=== PATIENT | female | born 1985 | race Caucasian/White ===

== ENCOUNTER 2016-09-12 19:07 | Inpatient (IN) | payer MEDICAID ==
[2016-09-12] VITALS (37 sets, daily range): BP systolic 88–142; BP diastolic 51–114; PULSE 66–89; RESP 18; TEMP 97.9
[~2016-09-12 19:07] MED LIST: IBUP600 PO
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
[2016-09-12] MEDS ORDERED: LACTATED RINGER'S 1000 ML INJ 1,000 ML IV SCH (20:18)
[2016-09-12] MEDS ORDERED: LACTATED RINGER'S 1000 ML INJ 1,000 ML IV PRN (20:18)
[2016-09-12] MEDS ORDERED: LIDOCAINE HCL 1% 50 ML VIAL I-DERMAL PRN (20:30)
[2016-09-12] MEDS ORDERED: SODIUM CHLORID 0.9% 500 ML INJ 500 ML IV PRN (20:30)
[2016-09-12] MEDS ORDERED: CITRIC ACID-SODIUM CITRATE LIQ 30 ML UDC PO SCH (20:30)
[2016-09-12] MEDS ORDERED: LIDOCAINE HCL 1% 50 ML VIAL INFIL PRN (20:30)
[2016-09-12] MEDS ORDERED: OXYTOCIN 30 UNITS-500ML PREMIX 500 ML IV ONE (20:30)
[2016-09-12] MEDS ORDERED: MINERAL OIL 10 ML VIAL TOPICAL PRN (20:30)
[2016-09-12] MEDS ORDERED: ONDANSETRON HCL 4 MG/2 ML VIAL IV PRN (20:30)
[2016-09-12] MEDS ORDERED: SODIUM CHLOR 0.9% 1000 ML INJ 1,000 ML IV PRN (20:38)
[2016-09-12 21:33] LABS: AUTOMATED NEUTROPHIL # 15.4 TH/MM3 (1.8-7.7); BASOPHIL # 0.1 TH/MM3 (0-0.2); BASOPHIL % 0.4 % (0.0-2.0); EOSINOPHIL # 0.5 TH/MM3 (0-0.4); EOSINOPHIL % 2.4 % (0.0-4.0); HEMATOCRIT 35.4 % (35.0-46.0); HEMO FLAGS DIFF FINAL; LYMPH % 18.2 % (9.0-44.0); LYMPHOCYTE # 3.9 TH/MM3 (1.0-4.8); MEAN CELL VOLUME 92.8 FL (80.0-100.0); MEAN CORPUSCULAR HEMOGLOBIN 31.3 PG (27.0-34.0); MEAN CORPUSCULAR HGB CONC 33.7 % (32.0-36.0); MONO % 7.1 % (0.0-8.0); NEUT % 71.9 % (16.0-70.0); PLATELET COUNT 210 TH/MM3 (150-450); RED BLOOD COUNT 3.81 MIL/MM3 (4.00-5.30); RED CELL DISTRIBUTION WIDTH 12.6 % (11.6-17.2); WHITE BLOOD COUNT 21.4 TH/MM3 (4.0-11.0)
[2016-09-12] MEDS ORDERED: fentaNYL 2MCG-BUPIV 0.125% INJ 100 ML ONE (21:40)
--- NOTE | 2016-09-12 23:50 | PD.LABORPN ---
Subjective Subjective Asked by Dr. Ring to artificially rupture this patient's membranes Patient is comfortable with her epidural no complaints Objective Vital Signs Vital Signs Date Time Temp Pulse Resp B/P Pulse Ox O2 Delivery O2 Flow Rate FiO2 09/12/16 23:25 72 115/58 09/12/16 23:25 70 09/12/16 23:20 68 122/70 09/12/16 23:20 69 09/12/16 23:15 76 09/12/16 23:15 67 119/67 09/12/16 23:10 68 09/12/16 23:10 74 113/77 09/12/16 23:06 80 88/51 09/12/16 23:05 70 09/12/16 23:00 72 09/12/16 23:00 78 120/83 09/12/16 22:55 74 09/12/16 22:55 69 125/76 09/12/16 22:50 72 122/68 09/12/16 22:50 68 09/12/16 22:45 67 09/12/16 22:45 68 117/71 09/12/16 22:40 76 135/62 09/12/16 22:40 66 09/12/16 22:35 74 120/73 09/12/16 22:35 72 09/12/16 22:30 79 09/12/16 22:30 78 120/68 09/12/16 22:25 80 09/12/16 22:25 76 124/81 09/12/16 22:20 79 09/12/16 22:20 77 120/75 09/12/16 22:16 82 125/63 09/12/16 22:15 80 09/12/16 22:10 77 09/12/16 22:10 88 132/69 09/12/16 22:05 73 121/77 09/12/16 22:05 74 09/12/16 22:01 77 142/83 09/12/16 22:00 72 09/12/16 22:00 81 142/114 09/12/16 21:55 73 09/12/16 21:50 79 09/12/16 21:45 81 127/79 09/12/16 21:45 79 09/12/16 21:40 80 09/12/16 21:35 79 09/12/16 21:30 79 09/12/16 21:25 78 09/12/16 21:20 83 09/12/16 20:58 18 09/12/16 20:58 97.9 09/12/16 20:45 80 132/87 Objective Pelvic Exam: Cervix: [-] Midline Dilatation: [-] 4-5 cm Effacement: [-] 100% effaced Station: [-] -1 to -2 station Presentation: [-] Vertex Membranes ruptured] artificial rupture membranes fluid is clear Uterine Contractions: [-] Irregular FHT's: Category: [-] 1 Baseline: [-] 130 Reactive: [-] + Variability: [-] Moderate Decels: [-] 0 Assessment/Plan Assessment and Plan Patient progressing in labor Plan is to continue present management Sarahi Washburn MD Sep 12, 2016 23:50
[2016-09-13] VITALS (29 sets, daily range): BP systolic 105–145; BP diastolic 57–92; PULSE 62–85; RESP 18; TEMP 98–98.3
--- NOTE | 2016-09-13 01:34 | PD.OB.DELI ---
Anesthesia: Epidural Episiotomy: None Vaginal Delivery: Normal Presentation: Occiput anterior Nuchal Cord: None Delayed cord clamping (45 sec): Yes Infant: Male One Minute : 9 Five Minute : 9 Placenta: Spontaneous delivery Laceration: No lacerations Tina Espinal MD Sep 13, 2016 01:34
[2016-09-13] MEDS ORDERED: BENZOCAINE 20% TOPICAL SPRAY 60 ML CAN TOPICAL PRN (01:45)
[2016-09-13] MEDS ORDERED: SODIUM CHLORIDE 0.9% FLUSH 10 ML FLUSH IV FLUSH PRN (01:45)
[2016-09-13] MEDS ORDERED: WITCH HAZEL 50%/GLYCERIN 12.5% 40 PAD JAR TOPICAL PRN (01:45)
[2016-09-13] MEDS ORDERED: DOCUSATE SODIUM 50 MG/SENNA 8.6 MG TAB PO PRN (01:45)
[2016-09-13] MEDS ORDERED: ACETAMINOPHEN 325 MG TAB PO PRN (01:45)
[2016-09-13] MEDS ORDERED: ONDANSETRON ODT 4 MG TAB PO PRN (01:45)
[2016-09-13] MEDS ORDERED: ALUMINUM/MAGNESIUM/SIMETH 30 ML CUP PO PRN (01:45)
[2016-09-13] MEDS ORDERED: ZOLPIDEM TARTRATE 5 MG TAB PO PRN (01:45)
[2016-09-13] MEDS: IBUPROFEN 600 MG TAB PO PRN ×3 (05:54→19:06)
--- NOTE | 2016-09-13 08:12 | HHI.OB ---
Subjective Post Day: 0 Remarks doing great nursing desires circ Objective Vitals/I&O Vital Signs Date Time Temp Pulse Resp B/P Pulse Ox O2 Delivery O2 Flow Rate FiO2 09/13/16 03:45 67 18 140/83 09/13/16 03:15 18 09/13/16 03:00 18 09/13/16 03:00 68 116/73 09/13/16 02:46 68 117/60 09/13/16 02:45 18 09/13/16 02:30 63 122/77 09/13/16 02:30 18 09/13/16 02:15 65 120/72 09/13/16 02:15 18 09/13/16 02:00 77 125/82 09/13/16 01:50 18 09/13/16 01:46 84 127/83 09/13/16 01:45 98.0 18 09/13/16 01:37 71 133/83 09/13/16 01:15 85 145/87 09/13/16 01:10 72 09/13/16 01:10 72 121/84 09/13/16 01:05 75 120/86 09/13/16 01:05 79 09/13/16 01:00 69 123/82 09/13/16 01:00 84 09/13/16 00:55 75 09/13/16 00:55 73 129/87 09/13/16 00:50 75 09/13/16 00:50 74 123/79 09/13/16 00:45 75 122/92 09/13/16 00:45 74 09/13/16 00:40 73 119/83 09/13/16 00:40 65 09/13/16 00:35 74 09/13/16 00:35 77 124/67 09/13/16 00:30 70 09/13/16 00:30 68 110/57 09/13/16 00:25 70 09/13/16 00:25 70 120/76 09/13/16 00:20 71 122/70 09/13/16 00:20 66 09/13/16 00:15 70 09/13/16 00:15 68 120/74 09/13/16 00:10 68 116/73 09/13/16 00:10 69 09/13/16 00:05 67 115/77 09/13/16 00:05 65 09/13/16 00:00 66 09/13/16 00:00 67 117/73 09/12/16 23:55 72 118/75 09/12/16 23:55 67 09/12/16 23:50 80 118/78 09/12/16 23:50 80 09/12/16 23:45 89 121/80 09/12/16 23:45 86 09/12/16 23:40 82 115/80 09/12/16 23:40 87 09/12/16 23:35 77 126/58 09/12/16 23:35 76 09/12/16 23:30 70 09/12/16 23:30 69 118/76 09/12/16 23:25 72 115/58 09/12/16 23:25 70 09/12/16 23:20 68 122/70 09/12/16 23:20 69 09/12/16 23:15 76 09/12/16 23:15 67 119/67 09/12/16 23:10 68 09/12/16 23:10 74 113/77 09/12/16 23:06 80 88/51 09/12/16 23:05 70 09/12/16 23:00 72 09/12/16 23:00 78 120/83 09/12/16 22:55 74 09/12/16 22:55 69 125/76 09/12/16 22:50 72 122/68 09/12/16 22:50 68 09/12/16 22:45 67 09/12/16 22:45 68 117/71 09/12/16 22:40 76 135/62 09/12/16 22:40 66 09/12/16 22:35 74 120/73 09/12/16 22:35 72 09/12/16 22:30 79 09/12/16 22:30 78 120/68 09/12/16 22:25 80 09/12/16 22:25 76 124/81 09/12/16 22:20 79 09/12/16 22:20 77 120/75 09/12/16 22:16 82 125/63 09/12/16 22:15 80 09/12/16 22:10 77 09/12/16 22:10 88 132/69 09/12/16 22:05 73 121/77 09/12/16 22:05 74 09/12/16 22:01 77 142/83 09/12/16 22:00 72 09/12/16 22:00 81 142/114 09/12/16 21:55 73 09/12/16 21:50 79 09/12/16 21:45 81 127/79 09/12/16 21:45 79 09/12/16 21:40 80 09/12/16 21:35 79 09/12/16 21:30 79 09/12/16 21:25 78 09/12/16 21:20 83 09/12/16 20:58 18 09/12/16 20:58 97.9 09/12/16 20:45 80 132/87 Objective Remarks GENERAL: Well-nourished, well-developed patient. CARDIOVASCULAR: Regular rate and rhythm without murmurs, gallops, or rubs. RESPIRATORY: Breath sounds equal bilaterally. No accessory muscle use. ABDOMEN/GI: Abdomen soft, non-tender. Fundus: Firm, non-tender at umbilicus. GENITOURINARY: Light to moderate bleeding. EXTREMITIES: No cyanosis or edema, non-tender, without signs of DVT. Medications and IVs Current Medications Medications (Trade) Dose Ordered Sig/Erasmo Route Start Time Stop Time Status Last Admin Lactated Ringer's 1,000 ml @ 125 mls/hr Q8H IV 09/12/16 20:18 Lactated Ringer's 1,000 ml @ 3,000 mls/hr Q20M PRN IV 09/12/16 20:18 (NS 1000 ml Inj) 1,000 ml @ 100 mls/hr Q10H PRN IV 09/12/16 20:38 (Zofran Inj) 4 mg Q6H PRN IV 09/12/16 20:30 (fentaNYL INJ) 50 mcg Q1H PRN IV PUSH 09/12/16 20:30 (fentaNYL INJ) 100 mcg Q1H PRN IV PUSH 09/12/16 20:30 (Muri-Lube Oil) 10 ml UNSCH PRN TOPICAL 09/12/16 20:30 (NS Flush) 2 ml BID IV FLUSH 09/13/16 09:00 (NS Flush) 2 ml UNSCH PRN IV FLUSH 09/13/16 01:45 (Tylenol) 650 mg Q4H PRN PO 4/28/17 01:45 (Motrin) 600 mg Q6H PRN PO 09/13/16 01:45 09/13/16 05:54 (Americaine 20% Top Spr) 1 spray Q4H PRN TOPICAL 09/13/16 01:45 (Tucks Pads) 1 applic QID PRN TOPICAL 09/13/16 01:45 (Steph-Colace) 2 tab Q12H PRN PO 09/13/16 01:45 (Ambien) 5 mg HS PRN PO 09/13/16 01:45 (M-M-R Ii Inj) 0.5 ml ONCE ONCE SQ 09/13/16 16:00 09/13/16 16:01 (Boostrix Inj) 0.5 ml ONCE ONCE IM 09/13/16 16:00 09/13/16 16:01 (Mag-Al Plus Susp Liq) 15 ml Q8H PRN PO 09/13/16 01:45 (Zofran Odt) 4 mg Q6H PRN PO 09/13/16 01:45 Assessment/Plan Assessment and Plan home Friday circ in am or next week Tina Espinal MD Sep 13, 2016 08:12
--- NOTE | 2016-09-13 08:27 | HHI.DCPOC ---
Discharge Care Plan Diagnosis: (1) (spontaneous vaginal delivery) Your Health Problems Are: Vaginal delivery Report Symptoms to Your Doctor -Temperate above 100.5 degrees -Redness, of incision or excessive or foul smelling drainage -Unusual pain or calf pain -Increased vaginal bleeding -Painful or difficulty urinating -Feelings of extreme sadness or anxiety after 2 weeks Goals to Promote Your Health * To prevent worsening of your condition and complications * To maintain your health at the optimal level Directions to Meet Your Goals Take your medications as prescribed Follow your dietary instruction Follow activity as directed Ensure plenty of rest for recovery Drink fluids for hydration Keep your appointments as scheduled Take your immunizations and boosters as scheduled If your symptoms worsen call your PCP, if no PCP go to Urgent Care Center or Emergency Room Smoking is Dangerous to Your Health. Avoid second hand smoke Call the 24-hour crisis hotline for domestic abuse at [place]ler [place] MD Sep 13, 2016 08:27
[2016-09-13] MEDS ORDERED: IBUP-232 PO (08:28)
[2016-09-13] MEDS ORDERED: SODIUM CHLORIDE 0.9% FLUSH 10 ML FLUSH IV FLUSH SCH (09:00)
[2016-09-13] MEDS ORDERED: MEASLES, MUMPS, RUBELLA VACCINE 0.5 ML VIAL SQ ONE (16:00)
[2016-09-13] MEDS ORDERED: DIPHTH/TETANUS/ACEL PERTUSSIS (BOOSTER) 0.5 ML VIAL/PFS IM ONE (16:00)
[2016-09-14] MEDS: IBUPROFEN 600 MG TAB PO PRN (05:00)
--- NOTE | 2016-09-14 05:21 | HHI.OB ---
Subjective Post Day: 1 Remarks s/p close to midnight yesterday 09/13/16 Objective Vitals/I&O Vital Signs Date Time Temp Pulse Resp B/P Pulse Ox O2 Delivery O2 Flow Rate FiO2 09/13/16 21:00 62 18 105/59 09/13/16 21:00 98.3 Objective Remarks GENERAL: Well-nourished, well-developed patient. CARDIOVASCULAR: Regular rate and rhythm without murmurs, gallops, or rubs. RESPIRATORY: Breath sounds equal bilaterally. No accessory muscle use. ABDOMEN/GI: Abdomen soft, non-tender. Fundus: Firm, non-tender at umbilicus. GENITOURINARY: Light bleeding. EXTREMITIES: No cyanosis or edema, non-tender, without signs of DVT. Medications and IVs Current Medications Medications (Trade) Dose Ordered Sig/Erasmo Route Start Time Stop Time Status Last Admin Lactated Ringer's 1,000 ml @ 125 mls/hr Q8H IV 09/12/16 20:18 Lactated Ringer's 1,000 ml @ 3,000 mls/hr Q20M PRN IV 09/12/16 20:18 (NS 1000 ml Inj) 1,000 ml @ 100 mls/hr Q10H PRN IV 09/12/16 20:38 (Zofran Inj) 4 mg Q6H PRN IV 09/12/16 20:30 (fentaNYL INJ) 50 mcg Q1H PRN IV PUSH 09/12/16 20:30 (fentaNYL INJ) 100 mcg Q1H PRN IV PUSH 09/12/16 20:30 (Muri-Lube Oil) 10 ml UNSCH PRN TOPICAL 09/12/16 20:30 (NS Flush) 2 ml BID IV FLUSH 09/13/16 09:00 (NS Flush) 2 ml UNSCH PRN IV FLUSH 09/13/16 01:45 (Tylenol) 650 mg Q4H PRN PO 09/13/16 01:45 (Motrin) 600 mg Q6H PRN PO 09/13/16 01:45 09/14/16 05:00 (Americaine 20% Top Spr) 1 spray Q4H PRN TOPICAL 09/13/16 01:45 (Tucks Pads) 1 applic QID PRN TOPICAL 09/13/16 01:45 (Steph-Colace) 2 tab Q12H PRN PO 09/13/16 01:45 (Ambien) 5 mg HS PRN PO 09/13/16 01:45 (Mag-Al Plus Susp Liq) 15 ml Q8H PRN PO 09/13/16 01:45 (Zofran Odt) 4 mg Q6H PRN PO 09/13/16 01:45 Assessment/Plan Problem List: (1) (spontaneous vaginal delivery) Assessment and Plan PPD#1 routine supportive care delivery close to midnight yesterday, plan d/c today infant s/p circ, doing well office f/u 6 wks Discharge Planning routine, today Tayler Grove MD Sep 14, 2016 05:21
[2016-09-14 10:12] VITALS: BP 119/74; PULSE 74; RESP 16; TEMP 98.4
== END 2016-09-14 12:15 | disposition home or self-care (01) | DRG 775 ==
LOC: HOBED 19:07 → H2EA 20:30 → H1EA 09-13 03:34
PROVIDERS: ADMIT Obstetrics & Gynecology; ATTEND Obstetrics & Gynecology
PROC: 10E0XZZ Delivery of Products of Conception, External Approach (ICD-10-PCS; principal; 2016-09-13)
DX: O80 Encounter for full-term uncomplicated delivery (principal); Z37.0 Single live birth; Z3A.38 38 weeks gestation of pregnancy
CPT/HCPCS: 85025; 90707; 99285